=== PATIENT | female | born 1955 | race Two or more races ===

== ENCOUNTER 2016-12-07 09:58 | Emergency (ER) | payer SELFPAY ==
[~2016-12-07] VITALS: Ht 157.5 cm; Wt 67.3 kg
[2016-12-07 12:46] VITALS: BP 181/89
== END 2016-12-07 12:46 | disposition home or self-care (01) ==
LOC: ED 09:58
DX: H40.212 Acute angle-closure glaucoma, left eye (principal); I10 Essential (primary) hypertension; H54.0 Blindness, both eyes; E11.9 Type 2 diabetes mellitus without complications
CPT/HCPCS: J1885; Q0162